=== PATIENT | female | born 1980 | race Two or more races ===

== ENCOUNTER 2019-04-24 14:35 | Emergency (ER) | payer OTHER ==
[~2019-04-24] VITALS: Ht 162.6 cm; Wt 55.3 kg
== END 2019-04-24 19:43 | disposition home or self-care (01) ==
LOC: ER 14:35
DX: J11.1 Influenza due to unidentified influenza virus with other respiratory manifestations (principal)

== ENCOUNTER 2019-12-30 22:06 | Emergency (ER) | payer OTHER ==
[~2019-12-30] VITALS: Ht 167.6 cm; Wt 53.5 kg
[2019-12-30] MEDS ORDERED: PANADOL (22:40)
[2019-12-30] MEDS ORDERED: ALBUTEROL (22:41)
[2019-12-30] MEDS ORDERED: [UNRECOGNIZED DRUG - REMARK] (22:42)
[2019-12-31] MEDS ORDERED: ACETAMINOPHEN500 M1 PO (03:35)
[2019-12-31] MEDS ORDERED: PEPCID AC20 MG PO (03:50)
== END 2019-12-31 06:14 | disposition home or self-care (01) ==
LOC: ER 22:06
DX: U07.1 COVID-19 (principal); B34.9 Viral infection, unspecified

== ENCOUNTER 2020-01-12 23:54 | Emergency (ER) | payer OTHER ==
[~2020-01-12] VITALS: Ht 167.6 cm; Wt 56.2 kg
[~2020-01-12 23:54] MED LIST: ACETAMINOPHEN500 M1 PO; ALBUTEROL; PANADOL; PEPCID AC20 MG PO; [UNRECOGNIZED DRUG - REMARK]
[2020-01-13] MEDS ORDERED: BUDESONIDE0.5 MG/2 M IH (05:42)
[2020-01-13] MEDS ORDERED: ALBUTEROL2.5 MG/3 M IH (05:42)
[2020-01-13] MEDS ORDERED: PEPCID40 MG PO ×2 (05:45→05:46)
[2020-01-13] MEDS ORDERED: LEVSIN/SL0.125 MG SL (05:46)
[2020-01-14] MEDS ORDERED: VITAMIN D-40010 MCG PO (13:26)
[2020-01-14] MEDS ORDERED: MEDROLPACK PO (13:26)
[2020-01-14] MEDS ORDERED: ZINC GLUCONATE100 MG PO (13:26)
[2020-01-14] MEDS ORDERED: VITAMIN C1000 MG PO (13:26)
== END 2020-01-13 07:59 ==
LOC: ER 23:54
DX: U07.1 COVID-19 (principal); B96.0 Mycoplasma pneumoniae [M. pneumoniae] as the cause of diseases classified elsewhere; R06.02 Shortness of breath

== ENCOUNTER 2020-01-14 03:27 | Emergency (ER) | payer OTHER ==
[~2020-01-14] VITALS: Ht 167.6 cm; Wt 56.2 kg
[~2020-01-14 03:27] MED LIST changes: +ALBUTEROL2.5 MG/3 M IH; +BUDESONIDE0.5 MG/2 M IH; +LEVSIN/SL0.125 MG SL; +PEPCID40 MG PO
[2020-01-14] MEDS ORDERED: VITAMIN D-40010 MCG PO (13:26)
[2020-01-14] MEDS ORDERED: ZINC GLUCONATE100 MG PO (13:26)
[2020-01-14] MEDS ORDERED: MEDROLPACK PO (13:26)
[2020-01-14] MEDS ORDERED: VITAMIN C1000 MG PO (13:26)
== END 2020-01-14 17:52 | disposition home or self-care (01) ==
LOC: ER 03:27
DX: U07.1 COVID-19 (principal); J45.998 Other asthma; R06.02 Shortness of breath

== ENCOUNTER 2020-01-18 21:31 | Emergency (ER) | payer OTHER ==
[~2020-01-18] VITALS: Ht 167.6 cm; Wt 55.8 kg
[~2020-01-18 21:31] MED LIST changes: +MEDROLPACK PO; +VITAMIN C1000 MG PO; +VITAMIN D-40010 MCG PO; +ZINC GLUCONATE100 MG PO
[2020-01-19] MEDS ORDERED: NORFLEX100MG PO (03:42)
[2020-01-19] MEDS ORDERED: MOBIC15 MG PO (03:42)
[2020-01-19] MEDS ORDERED: PEPCID40 MG PO (03:42)
[2020-01-19] MEDS ORDERED: PROTONIX40 MG PO (03:42)
[2020-01-19] MEDS ORDERED: XOPENEX0.63 MG/3 IH (03:42)
== END 2020-01-19 04:10 | disposition home or self-care (01) ==
LOC: ER 21:31
DX: M94.0 Chondrocostal junction syndrome [Tietze] (principal); K29.60 Other gastritis without bleeding

== ENCOUNTER 2020-01-28 21:56 | Emergency (ER) | payer OTHER ==
[~2020-01-28] VITALS: Ht 157.5 cm; Wt 55.8 kg
[~2020-01-28 21:56] MED LIST changes: +MOBIC15 MG PO; +NORFLEX100MG PO; +PROTONIX40 MG PO; +XOPENEX0.63 MG/3 IH
== END 2020-01-28 23:58 | disposition home or self-care (01) ==
LOC: ER 21:56
DX: M94.0 Chondrocostal junction syndrome [Tietze] (principal); R06.02 Shortness of breath; F41.8 Other specified anxiety disorders

== ENCOUNTER → 2020-10-16 08:29 | Outpatient (CLI) | payer OTHER | END | disposition home or self-care (01) | LOC: NUCLEAR 08:00 | PROVIDERS: ATTEND Internal Medicine | DX: I25.10 Atherosclerotic heart disease of native coronary artery without angina pectoris (principal) | CPT/HCPCS: 78452; 93017; A9500 ==

== ENCOUNTER 2021-09-15 13:07 | Emergency (ER) | payer OTHER ==
[~2021-09-15] VITALS: Ht 167.6 cm; Wt 62.1 kg
[2021-09-15] MEDS ORDERED: PEPCID AC10 MG PO (13:34)
== END 2021-09-15 19:32 | disposition home or self-care (01) ==
LOC: ER 13:07
DX: J15.7 Pneumonia due to Mycoplasma pneumoniae (principal); Z20.822 Contact with and (suspected) exposure to COVID-19

== ENCOUNTER 2021-09-16 09:14 | Emergency (ER) | payer OTHER ==
[~2021-09-16] VITALS: Ht 167.6 cm; Wt 62.1 kg
[~2021-09-16 09:14] MED LIST changes: +PEPCID AC10 MG PO
== END 2021-09-16 14:20 | disposition home or self-care (01) ==
LOC: ER 09:14
DX: U07.1 COVID-19 (principal); K29.00 Acute gastritis without bleeding

== ENCOUNTER 2021-09-28 00:09 | Emergency (ER) | payer OTHER ==
[~2021-09-28] VITALS: Ht 167.6 cm; Wt 63.5 kg
[2021-09-28] MEDS ORDERED: PROTONIX40 MG (00:31)
[2021-09-28] MEDS ORDERED: PEPCID40 MG PO (04:33)
[2021-09-28] MEDS ORDERED: ORPHENADRI30 MG/1 M1 IJ (04:33)
[2021-09-28] MEDS ORDERED: TORADOL60 MG IM (04:33)
[2021-09-28] MEDS ORDERED: PROTONIX20 MG PO (04:33)
[2021-09-28] MEDS ORDERED: CARAFATE1 GM PO (04:33)
== END 2021-09-28 05:06 | disposition home or self-care (01) ==
LOC: ER 00:09
DX: K29.70 Gastritis, unspecified, without bleeding (principal); R10.84 Generalized abdominal pain; M94.0 Chondrocostal junction syndrome [Tietze]; M54.2 Cervicalgia

== ENCOUNTER 2022-05-27 03:08 | Emergency (ER) | payer OTHER ==
[~2022-05-27] VITALS: Ht 167.6 cm; Wt 55.8 kg
[~2022-05-27 03:08] MED LIST changes: +CARAFATE1 GM PO; +ORPHENADRI30 MG/1 M1 IJ; +PROTONIX20 MG PO; +PROTONIX40 MG; +TORADOL60 MG IM
== END 2022-05-27 12:45 | disposition home or self-care (01) ==
LOC: ER 03:08
DX: K29.70 Gastritis, unspecified, without bleeding (principal)

== ENCOUNTER 2022-08-18 14:41 | Emergency (ER) | payer OTHER ==
[~2022-08-18] VITALS: Ht 167.6 cm; Wt 58.5 kg
== END 2022-08-18 20:23 | disposition home or self-care (01) ==
LOC: ER 14:41
DX: M94.0 Chondrocostal junction syndrome [Tietze] (principal); R42 Dizziness and giddiness; R06.02 Shortness of breath

== ENCOUNTER 2022-09-21 10:41 | Emergency (ER) | payer OTHER ==
[~2022-09-21] VITALS: Ht 167.6 cm; Wt 58.1 kg
== END 2022-09-21 12:49 | disposition home or self-care (01) ==
LOC: ER 10:41
DX: F41.9 Anxiety disorder, unspecified (principal)

== ENCOUNTER 2023-05-04 22:41 | Emergency (ER) | payer OTHER ==
[~2023-05-04] VITALS: Ht 167.6 cm; Wt 56.7 kg
[2023-05-05 02:03] LABS: HEMATOCRIT 41.5 % (36.0-45.00); HEMOGLOBIN 14.2 g/dL (12.0-15.00); MEAN CELL VOLUME 93.6 fL (80.00-100.00); MEAN CORPUSCULAR HGB CONC 34.2 g/dl (32.0-36.0); PLATELET COUNT 157 K/uL (150-450); RED BLOOD COUNT 4.44 M/uL (4.00-6.00); RED CELL DISTRIBUTION WIDTH 13.3 % (11.5-14.5)
== END 2023-05-05 03:31 | disposition home or self-care (01) ==
LOC: ER 22:42
DX: J06.9 Acute upper respiratory infection, unspecified (principal); Z20.822 Contact with and (suspected) exposure to COVID-19

== ENCOUNTER 2024-07-07 23:48 | Emergency (ER) | payer OTHER ==
[~2024-07-07] VITALS: Ht 167.6 cm; Wt 51.7 kg
[2024-07-08] MEDS ORDERED: METHYLPREDNISOLONE SOD SUCC 125 MG VIAL IV STA ×2 (03:31→03:32)
[2024-07-08] MEDS ORDERED: IPRATROPIUM/ALBUTEROL SULFATE 3 ML AMPUL.NEB IH STA (03:33)
[2024-07-08] MEDS ORDERED: METHYLPREDNISOLONE SOD SUCC 125 MG VIAL ONE (03:37)
[2024-07-08] MEDS ORDERED: ACETAMINOPHEN 500 MG GEL..CAP PO ONE (03:38)
[2024-07-08] MEDS ORDERED: LORazepam 1 MG TABLET PO STA (03:48)
[2024-07-08] MEDS ORDERED: IPRATROPIUM/ALBUTEROL SULFATE 3 ML AMPUL.NEB IH ONE (03:55)
[2024-07-08] MEDS ORDERED: FAMOTIDINE/PF 20 MG/2 ML VIAL ONE (04:09)
[2024-07-08] MEDS ORDERED: FAMOTIDINE/PF 20 MG/2 ML VIAL IV PUSH STA (04:10)
[2024-07-08 04:14] LABS: HEMATOCRIT 43.2 % (36.0-45.00); HEMOGLOBIN 15.1 g/dL (12.0-15.00); MEAN CELL VOLUME 93.4 fL (80.00-100.00); MEAN CORPUSCULAR HEMOGLOBIN 32.6 pg (27.00-32.0); MEAN CORPUSCULAR HGB CONC 34.9 g/dl (32.0-36.0); PLATELET COUNT 204 K/uL (150-450); RED BLOOD COUNT 4.63 M/uL (4.00-6.00); RED CELL DISTRIBUTION WIDTH 13.5 % (11.5-14.5)
[2024-07-08 05:02] LABS: CALCIUM 8.7 mg/dL (8.5-10.1); CREATININE SERUM 0.7 mg/dL (0.55-1.02); GFR 90.9; POTASSIUM 4.12 mEq/L (3.5-5.1)
== END 2024-07-08 06:19 | disposition home or self-care (01) ==
LOC: ER 23:51
DX: J06.9 Acute upper respiratory infection, unspecified (principal); Z20.822 Contact with and (suspected) exposure to COVID-19; F41.9 Anxiety disorder, unspecified

== ENCOUNTER → 2024-07-18 | Emergency (ER) | payer OTHER ==
[~2024-07-18] VITALS: Ht 170.2 cm; Wt 49.9 kg
[~2024-07-18] MED LIST changes: +NEXIUM5 MG; +PROAIR RESPICL90 MCG
== END | disposition left against medical advice (07) ==
LOC: ER 22:38
DX: Z53.21 Procedure and treatment not carried out due to patient leaving prior to being seen by health care provider (principal)